=== PATIENT | female | born 1970 | race Caucasian/White ===

== ENCOUNTER 2016-12-13 20:06 | Emergency (ER) | payer BC, OTHER ==
[~2016-12-13] VITALS: Ht 162.6 cm; Wt 87.0 kg
[2016-12-13 20:07] VITALS: BP 149/93; PULSE 106; RESP 18; TEMP 97.7; O2SAT 100
[2016-12-13 21:42] LABS: BACTERIA, URINE OCC /hpf; BLOOD, URINE TRACE (NEG); COMMENT (UR) CULT NOT INDICATED; CULTURE IF INDICATED CULT NOT INDICATED; GLUCOSE,URINE NEG (NEG); KETONE, URINE NEG (NEG); NITRITE,URINE NEG (NEG); PH, URINE 5.5 (5.0-8.5); SQUAMOUS EPITHELIAL CELL URINE 1 /hpf (0-5); URINE COLOR YELLOW (YELLW/STRAW)
--- NOTE | 2016-12-13 22:26 | PD ---
HPI Chief Complaint: Flank/Kidney Pain Time Seen by Provider: 21:51 Travel History International Travel<30 days: No Contact w/Intl Traveler<30days: No Traveled to known affect area: No History of Present Illness HPI The patient is a 46 year old female who presents to the [facility] emergency department with a history of left flank pain that began approximately a week ago. The patient reports that the pain was radiating to the left upper quadrant of the abdomen, however now it seems to have moved down into the left lower quadrant of the abdomen. The patient reports that her history is complicated by having chronic microscopic hematuria and a history of bladder cancer. She reports that she has been cancer free over the last 2 years. She reports that she last had cystoscopy done October 14 which was unremarkable. Her urologist is Dr. Elkins. 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 I review systems, the patient reports that she's had night sweats, however no fevers. She reports that over the last week she's had decreased urine output, however she is increasing her hydration. She reports that she is chronically on tramadol 1 time daily for chronic back pain, however today she had to take 2 pills. She reports having nausea but no vomiting. She denies having any diarrhea. Her last bowel movement was today. The patient denies any cough, congestion, neck pain, chest pain, shortness of breath, or neurologic symptoms. LMP: Status post partial hysterectomy. PFSH Past Medical History Narrative Medical The patient's past medical history is significant for bladder cancer, history of perineal mass diagnosed as carcinoma in situ status post resection on November 20, 2016, history of chronic back pain, history of kidney stones Cancer: Yes (BLADDER/RECTAL) Kidney Stones: Yes Immunizations Current: Yes ?: Not Past Surgical History Narrative Surgical The patient's past surgical history is significant for low back surgery, appendectomy, cholecystectomy, bladder tumor resection, partial hysterectomy, perineal surgery for localized carcinoma in situ Appendectomy: Yes Section: Yes Cholecystectomy: Yes Social History Alcohol Use: Yes (OCCASIONALLY) Tobacco Use: Yes (1/2 PPD) Substance Use: No Allergies-Medications (Allergen,Severity, Reaction): Coded Allergies: Codeine (Verified Allergy, Severe, Hives, 12/13/16) Demerol (Verified Allergy, Severe, Hives, 12/13/16) Iodine (Verified Allergy, Severe, Anaphylaxis, 12/13/16) Sulfa (Verified Allergy, Severe, Hives, 12/13/16) Toradol (Verified Allergy, Severe, Tachycardia, 12/13/16) Review of Systems Except as stated in HPI: all other systems reviewed are Neg General / Constitutional: No: Fever Eyes: No: Visual changes HENT: No: Headaches Cardiovascular: No: Chest Pain or Discomfort Respiratory: No: Shortness of Breath Gastrointestinal: Positive: Nausea, Abdominal Pain, No: Vomiting, Diarrhea, Hematemesis, Hematochezia, Changes in Bowel Habits, Indigestion, Loss of Appetite Genitourinary: Positive: Flank Pain, No: Dysuria Musculoskeletal: No: Pain Skin: No Rash Neurologic: No: Weakness Psychiatric: No: Depression Endocrine: No: Polydipsia Hematologic/Lymphatic: No: Easy Bruising Physical Exam Narrative General: The patient is a well-developed well-nourished female in no acute distress. Head and Neck exam: Head is normocephalic atraumatic. Eyes:Pupils are equal round and reactive to light. Nose: Midline septum with pink mucous membranes Mouth: Dentition unremarkable. Moist mucus membranes. Posterior oropharynx is not erythematous. No tonsillar hypertrophy. Uvula midline. Airway patent. Neck: No palpable lymphadenopathy. No nuchal rigidity. No thyromegaly. Cardiovascular: Regular rate and rhythm without murmurs, gallops, or rubs. Lungs: Clear to auscultation bilaterally. No wheezes, rhonchi, or rales. Abdomen: Soft, with tenderness on palpation of the left lower quadrant of the abdomen, no other tenderness on palpation of the other quadrants of the abdomen. No guarding, rebound, or rigidity. Normal bowel sounds are audible. No tenderness on palpation of McBurney's point. Negative [place] sign. Extremities: No clubbing, cyanosis, or edema. 2+ pulses in all 4 extremities. No calf tenderness on palpation. Back: No spinous process tenderness to palpation. Left-sided CVA tenderness on palpation. Neurologic Exam: Grossly nonfocal. Skin Exam: No rash noted. Intact skin that is warm and dry. Data Data Last Documented VS Vital Signs Date Time Temp Pulse Resp B/P Pulse Ox O2 Delivery O2 Flow Rate FiO2 12/13/16 21:45 18 12/13/16 20:07 97.7 106 149/93 100 Orders Urinalysis - C+S If Indicated (12/13/16 20:47) Ed Urine Pregnancytest Poc (12/13/16 20:47) Electrocardiogram (12/13/16 21:51) Complete Blood Count With Diff (12/13/16 21:51) Comprehensive Metabolic Panel (12/13/16 21:51) C-Reactive Protein (Crp) (12/13/16 21:51) Lipase (12/13/16 21:51) Cath For Specimen (12/13/16 21:51) Ct Abd/Pel W/O Iv Contrast (12/13/16 21:51) Iv Access Insert/Monitor (12/13/16 21:51) Ecg Monitoring (12/13/16 21:51) Sodium Chlor 0.9% 1000 Ml Inj (Ns 1000 M (12/13/16 23:00) Ondansetron Inj (Zofran Inj) (12/13/16 23:00) Ciprofloxacin 400 Mg Premix (Cipro 400 M (12/13/16 23:30) Metronidazole (Flagyl) (12/13/16 23:30) Ciprofloxacin (Cipro) (12/14/16 00:00) Oral Rehydration (12/13/16 23:53) Labs Laboratory Tests Test 12/13/16 12/13/16 20:51 23:15 Urine Color YELLOW Urine Turbidity CLEAR Urine pH 5.5 Urine Specific [place] 1.007 Urine Protein NEG mg/dL Urine Glucose (UA) NEG mg/dL Urine Ketones NEG mg/dL Urine Occult Blood TRACE Urine Nitrite NEG Urine Bilirubin NEG Urine Urobilinogen LESS THAN 2.0 MG/DL Urine Leukocyte Esterase NEG Urine RBC LESS THAN 1 /hpf Urine WBC LESS THAN 1 /hpf Urine Squamous Epithelial 1 /hpf Cells Urine Bacteria OCC /hpf Microscopic Urinalysis Comment CULT NOT INDICATED White Blood Count 9.8 TH/MM3 Red Blood Count 4.34 MIL/MM3 Hemoglobin 13.5 GM/DL Hematocrit 38.7 % Mean Corpuscular Volume 89.2 FL Mean Corpuscular Hemoglobin 31.2 PG Mean Corpuscular Hemoglobin 35.0 % Concent Red Cell Distribution Width 13.3 % Platelet Count 255 TH/MM3 Mean Platelet Volume 8.9 FL Neutrophils (%) (Auto) 67.7 % Lymphocytes (%) (Auto) 21.4 % Monocytes (%) (Auto) 9.1 % Eosinophils (%) (Auto) 1.1 % Basophils (%) (Auto) 0.7 % Neutrophils # (Auto) 6.7 TH/MM3 Lymphocytes # (Auto) 2.1 TH/MM3 Monocytes # (Auto) 0.9 TH/MM3 Eosinophils # (Auto) 0.1 TH/MM3 Basophils # (Auto) 0.1 TH/MM3 CBC Comment DIFF FINAL Differential Comment Sodium Level 137 MEQ/L Potassium Level 4.8 MEQ/L Chloride Level 102 MEQ/L Carbon Dioxide Level 29.4 MEQ/L Anion Gap 6 MEQ/L Blood Urea Nitrogen 15 MG/DL Creatinine 1.10 MG/DL Estimat Glomerular Filtration 54 ML/MIN Rate Random Glucose 105 MG/DL Calcium Level 8.7 MG/DL Total Bilirubin 0.4 MG/DL Aspartate Amino Transf 21 U/L (AST/SGOT) Alanine Aminotransferase 29 U/L (ALT/SGPT) Alkaline Phosphatase 100 U/L C-Reactive Protein 8.10 MG/DL Total Protein 7.1 GM/DL Albumin 3.3 GM/DL Lipase 131 U/L [facility] Medical Decision Making Medical Screen Exam Complete: Yes Emergency Medical Condition: Yes Medical Record Reviewed: Yes Interpretation(s) Last Impressions Abdomen/Pelvis CT 12/13/162150 Signed Impressions: Service Date/Time: Tuesday, December 13, 2016 22:49 - CONCLUSION: 1. There is diverticulitis involving the junction of the descending and sigmoid colon in the left lower quadrant. No significant free fluid or loculated collections are demonstrated to indicate an abscess. 2. No calcified renal stones or hydronephrosis. Mio Hong MD Differential Diagnosis Pyelonephritis, versus ureteral calculus, versus exacerbation of chronic back pain, versus diverticulitis, versus ovarian cyst Narrative Course During the course of the patients emergency department visit, the patients history, examination, and differential diagnosis were reviewed with the patient. The patient had IV access obtained and blood work sent for analysis. A CT scan of the abdomen and pelvis was ordered. The patient was initially provided normal saline 1 L IV fluid bolus, Zofran 4 mg IV. The patients laboratory studies were reviewed and remarkable for a urinalysis that shows trace occult blood, occasional bacteria, urine RBC is less than 1, WBC is less than 1, squamous epithelial cells 1, culture not indicated. CBC shows a white count of 9.8, hemoglobin 13.5, platelets 255 with 9.1 monos, CMP is remarkable for creatinine 1.10, C-reactive protein 8.10, lipase 131. Radiology studies were reviewed and remarkable for a CT scan of the abdomen and pelvis that shows evidence of diverticulitis involving the junction of the descending and sigmoid colon the left lower quadrant, no significant free fluid or loculated collections are demonstrated to indicate an abscess. No calcified renal stones or hydronephrosis. I was notified of the patient refused to have IV access. Therefore IV fluids and Zofran were discontinued. The patient was instead given ciprofloxacin and Flagyl by mouth. The patient will be discharged home with a prescription for Cipro, Flagyl, and Phenergan for nausea. The patient is resting comfortably and feels better, is alert and in no distress. The patients results and examination findings were discussed with the patient. The repeat examination is unremarkable and benign. The history, exam, diagnostic testing, and current condition do not suggest any significant pathology to warrant further testing, continued ED treatment, admission, or surgical evaluation at this point. The vital signs have been stable. The patient does not have uncontrollable pain, intractable vomiting, or other significant symptoms. The patient's condition is stable and appropriate for discharge. The patient will pursue further outpatient evaluation with a primary care physician or other designated or consulting physician as indicated in the discharge instructions. The patient expressed understanding and was agreeable with this plan. Diagnosis Primary Impression: Diverticulitis Qualified Code: K57.32 - Diverticulitis of large intestine without perforation or abscess without bleeding Referrals: Primary Care Physician 3 days Patient Instructions: Diverticulitis (ED), General Instructions Med/Other Pt SpecificInfo: Prescription(s) given Scripts Promethazine (Phenergan)25 Mg Tab25 Mg PO Q8HR PRN (Nausea/Vomiting) #7 TAB Ref 0 Prov:Amaris Delgado MD 12/14/16 Metronidazole (Flagyl)500 Mg [id number] Mg PO TID 7 Days Ref 0 Prov:Amaris Delgado MD 12/14/16 Ciprofloxacin (Cipro)500 Mg [id number] Mg PO BID #19 TAB Ref 0 Prov:Amaris Delgado MD 12/14/16 Disposition: DISCHARGE HOME Condition: Stable Amaris Delgado MD Dec 13, 2016:26
[2016-12-13] MEDS ORDERED: ONDANSETRON HCL 4 MG/2 ML VIAL IV ONE (23:00)
[2016-12-13] MEDS ORDERED: SODIUM CHLOR 0.9% 1000 ML INJ 1,000 ML IV ONE (23:00)
--- NOTE | 2016-12-13 23:21 | RADRPT ---
EXAM DATE/TIME: 12/13/2016 22:49 [place] COMPARISON: No previous studies available for comparison. INDICATIONS : Left flank pain. ORAL CONTRAST: No oral contrast ingested. RADIATION DOSE: 12.63 CTDIvol (mGy) MEDICAL HISTORY : Renal calculi. Carcinoma, bladder. SURGICAL HISTORY : Cholecystectomy. Fusion, lumbar. ENCOUNTER: Initial ACUITY: 4 - 6 days PAIN SCALE: 7/10 LOCATION: Left flank TECHNIQUE: Volumetric scanning of the abdomen and pelvis was performed. Using automated exposure control and ad justment of the mA and/or kV according to patient size, radiation dose was kept as low as reasonably achievable to obtain optimal diagnostic quality images. The lack of IV contrast limits the diagnosis for certain organ pathology. FINDINGS: LOWER LUNGS: The visualized lower lungs are clear. LIVER: Homogeneous density without lesion. There is no dilation of the biliary tree. No gallbladder, surgi heena removed. SPLEEN: Normal size without lesion. PANCREAS: Within normal limits. KIDNEYS: Normal in size and shape. There is no mass, stone, or hydronephrosis. ADRENAL GLANDS: Within normal limits. VASCULAR: There is no aortic aneurysm. BOWEL/MESENTERY: The stomach, small bowel demonstrate no acute abnormality. There is no free intraperitoneal air or f luid. There is however inflammatory changes involving the junction of the descending colon and sigmoi d colon with some scattered diverticula characteristic of diverticulitis. No free fluid or loculated fluid collections. There is stool throughout the colon. ABDOMINAL WALL: Within normal limits. RETROPERITONEUM: There is no lymphadenopathy. BLADDER: No wall thickening or mass. REPRODUCTIVE: Within normal limits. INGUINAL: There is no lymphadenopathy or hernia. MUSCULOSKELETAL: Within normal limits for patient age. Status post previous lumbar spinal surgery with fusion of the l ower lumbar spine CONCLUSION: 1. There is diverticulitis involving the junction of the descending and sigmoid colon in the left low er quadrant. No significant free fluid or loculated collections are demonstrated to indicate an absce ss. 2. No calcified renal stones or hydronephrosis. Mio Hong MD on December 13, 2016 at 23:14 Board Certified Radiologist. This report was verified electronically.
[2016-12-13] MEDS ORDERED: CIPROFLOXACIN 400 MG PREMIX 200 ML IV ONE (23:30)
[2016-12-13] MEDS ORDERED: metroNIDAZOLE 500 MG TAB PO ONE (23:30)
[2016-12-13 23:31] LABS: AUTOMATED NEUTROPHIL # 6.7 TH/MM3 (1.8-7.7); BASOPHIL # 0.1 TH/MM3 (0-0.2); BASOPHIL % 0.7 % (0.0-2.0); EOSINOPHIL # 0.1 TH/MM3 (0-0.4); EOSINOPHIL % 1.1 % (0.0-4.0); HEMATOCRIT 38.7 % (35.0-46.0); HEMO FLAGS DIFF FINAL; LYMPH % 21.4 % (9.0-44.0); LYMPHOCYTE # 2.1 TH/MM3 (1.0-4.8); MEAN CELL VOLUME 89.2 FL (80.0-100.0); MEAN CORPUSCULAR HEMOGLOBIN 31.2 PG (27.0-34.0); MONO % 9.1 % (0.0-8.0); NEUT % 67.7 % (16.0-70.0); PLATELET COUNT 255 TH/MM3 (150-450); RED BLOOD COUNT 4.34 MIL/MM3 (4.00-5.30); RED CELL DISTRIBUTION WIDTH 13.3 % (11.6-17.2); WHITE BLOOD COUNT 9.8 TH/MM3 (4.0-11.0)
[2016-12-13 23:48] LABS: ANION GAP 6 MEQ/L (5-15); AST (GOT) 21 U/L (15-37); BICARBONATE 29.4 MEQ/L (21.0-32.0); BLOOD UREA NITROGEN 15 MG/DL (7-18); CHLORIDE 102 MEQ/L (98-107); GLOMERULAR FILTRATION RATE 54 ML/MIN (>89); POTASSIUM 4.8 MEQ/L (3.5-5.1); SODIUM (NA) 137 MEQ/L (136-145)
[2016-12-13 23:51] LABS: ALKALINE PHOSPHATASE 100 U/L (45-117); ALT (GPT) 29 U/L (10-53); TOTAL BILIRUBIN ADULT 0.4 MG/DL (0.2-1.0)
[2016-12-14] MEDS ORDERED: CIPROFLOXACIN 500 MG TAB PO ONE
[2016-12-14] MEDS ORDERED: PROM25TA5 PO (00:05)
[2016-12-14] MEDS ORDERED: CIPR-9 PO (00:05)
[2016-12-14] MEDS ORDERED: METR-1 PO (00:05)
== END 2016-12-14 00:22 | disposition home or self-care (01) ==
LOC: NEPC 20:06
DX: K57.32 Diverticulitis of large intestine without perforation or abscess without bleeding (principal)
CPT/HCPCS: 74176; 80053; 81001; 83690; 84703; 85025; 86140